=== PATIENT | male | born 1990 | race Caucasian/White ===

== ENCOUNTER 2017-11-18 00:08 | Emergency (ER) | payer OTHER ==
[~2017-11-18] VITALS: Ht 175.3 cm; Wt 160.7 kg
[2017-11-18 00:12] VITALS: TEMP 36.7; Ht 175.3 cm; Wt 160.7 kg
[2017-11-18] MEDS ORDERED: OXYCODONE HCL IR 5 MG TAB (IMMEDIATE RELEASE) PO STA (00:28)
--- NOTE | 2017-11-18 00:30 | EMERGENCY ROOM VISIT NOTE ---
History Report prepared by Sandrita: Maday Buchanan Under the Supervision of: Dr. Vickie Mclain D.O. First contact with patient: 00:14 Chief Complaint: KNEEPAIN Stated Complaint: RT KNEE PAIN History of Present Illness The patient is a 27 year old male who presents to the Emergency Room with complaints of persistent right severe knee pain that began earlier today after a fall. The patient states that he was walking, when his left leg slipped and his right knee twisted and gave out, noting he fell on his side and did not land on his knee or hurt any other body parts. He reports that he was on the ground for a couple of minutes unable to get up because of the pain he was in. The patient states that he took Aleve and Biofreeze prior to arrival, which helped improve his symptoms, noting that the Tylenol did not help. He currently describes his discomfort as a 6/10 in severity. The patient does not think he dislocated anything and states that he has never injured his knee before. Source of History: patient Position: knee (right) Symptom Intensity: severe Quality: other (knee pain) Timing: other (persistent) Modifying Factors (Relieving): other (Aleve) Review of Systems See HPI for pertinent positives & negatives. A total of 10 systems reviewed and were otherwise negative. Past Medical & Surgical None Family History Patient reports no known family medical history. No pertinent family history. Social History Smoking Status: Never Smoker Smokeless Tobacco Use: Unknown Alcohol Use: none Drug Use: none Marital Status: single Housing Status: lives with family Occupation Status: employed Current/Historical Medications Scheduled PRN Naproxen Sodium (Aleve), 440 MG PO DIRECTED PRN for Pain Allergies Coded Allergies: Penicillins (Verified Allergy, Intermediate, RASH-HAPPENED A CHILD, ) Physical Exam Vital Signs Date Time Temp Pulse Resp B/P (MAP) Pulse Ox O2 Delivery O2 Flow Rate FiO2 11/18/17 01:35 87 18 127/69 99 11/18/17 00:12 36.7 93 18 144/89 97 Room Air Physical Exam Right lower extremity exam: exquisite tenderness over medial aspect of right knee. Has positive Dariel's test. Negative anterior and posterior Drawer's test. Moderate pain with varus position of right knee. The patient had easily palpable distal pulses and good sensation in the foot. Medical Decision & Procedures ER Provider Diagnostic Interpretation: Knee X-ray results as stated below per my review and interpretation: 2 views: No obvious fracture. No joint effusion. Medications Administered Medications (Trade) Dose Ordered Sig/Wang Route Start Time Stop Time Status Last Admin Dose Admin Oxycodone HCl (Roxicodone Immediate Rel Tab) 10 mg NOW STAT PO 11/18/17 00:28 11/18/17 00:30 DC 11/18/17 00:33 10 MG Procedure 0028: Ordered Oxycodone HCL 10mg PO. ED Course 0016: Past medical records reviewed. The patient was evaluated in room B3. A complete history and physical exam was performed. 0028: Ordered Oxycodone HCL 10mg PO. The patient went for x-ray of the right knee as described above. 0112: Upon reevaluation, the patient states that he is feeling better. I discussed findings and results with him. He verbalized agreement of the treatment plan. The patient was discharged home. Medical Decision The patient is a 27 year old male who presents to the ED with knee pain. Differential diagnosis includes patellar dislocation, knee sprain, meniscus injury, and ligamentous injury to knee. This is a morbidly obese 27-year-old male patient presents to the emergency department after slipping in some mud and twisting his right knee. The patient did fall to the ground but he did not land on the knee. Since the injury, he has had pain to the medial aspect of the knee. On physical exam, his presentation seems most consistent with a meniscus injury. The ligaments of the knee seemed to be intact. I have asked the patient to limit his ambulation and use NSAIDs for pain. He was given instructions for follow-up with orthopedics if the pain persists as he may require an MRI of the knee for further evaluation. Medication Reconcilliation Current Medication List: was personally reviewed by me Impression Primary Impression: Strain of right knee Scribe Attestation The scribe's documentation has been prepared under my direction and personally reviewed by me in its entirety. I confirm that the note above accurately reflects all work, treatment, procedures, and medical decision making performed by me. Departure Information Dispostion Home / Self-Care Referrals No Doctor, Assigned (PCP) Forms HOME CARE DOCUMENTATION FORM, IMPORTANT VISIT INFORMATION Patient Instructions My [facility] Additional Instructions Rest with the right knee levated. Apply ice. Limit walking over next 3-4 days. Follow up with ortho as directed if possible. Problem Qualifiers Primary Impression: Strain of right knee Encounter type: initial encounter Qualified Codes: S86.911A - Strain of unspecified muscle(s) and tendon(s) at lower leg level, right leg, initial encounter
[2017-11-18] MEDS ORDERED: NAPR220T40 PO (00:36)
[2017-11-18 01:35] VITALS: BP 127/69; PULSE 87; O2SAT 99
--- NOTE | 2017-11-18 06:34 | DIAGNOSTIC IMAGING REPORT ---
R KNEE 1 OR 2 VIEWS ROUTINE HISTORY: 27 years-old Male twiated right knee acute right knee pain status post twisting injury COMPARISON: None available TECHNIQUE: 2 views of the right knee FINDINGS: No acute fracture, subluxation or significant degenerative changes. No osteochondral defect. Small joint effusion. No radiopaque foreign body. IMPRESSION: Small joint effusion without fracture. The above report was generated using voice recognition software. It may contain grammatical, syntax or spelling errors. Electronically signed by: Christopher Tejada M.D. 11/18/2017 6:33 AM Dictated Date/Time: 11/18/2017 6:31 AM
== END 2017-11-18 01:36 | disposition home or self-care (01) ==
LOC: C.EDB 00:10
DX: S86.911A Strain of unspecified muscle(s) and tendon(s) at lower leg level, right leg, initial encounter (principal); W01.0XXA Fall on same level from slipping, tripping and stumbling without subsequent striking against object, initial encounter; Y92.9 Unspecified place or not applicable; Z88.0 Allergy status to penicillin